=== PATIENT | male | born 1950 | race Caucasian/White ===

== ENCOUNTER 2025-03-17 08:16 | Day surgery (SDC) | payer MEDICARE, BC ==
[~2025-03-17 08:16] MED LIST: Ondansetron 4 MG/2 ML SDV ONE; Propofol 200 MG/20 ML SDV ONE; Ropivacaine 0.5% 5 MG/ML 30 ML SDV ONE; Sodium Chloride 0.9% 10 ML Syringe FLUSH PRN; Sodium Chloride 0.9% 10 ML Syringe FLUSH SCH; dexmedeTOMIDine HCl 200 MCG/2 ML SDV ONE; fentaNYL 100 MCG/2 ML SDV ONE; propofoL 500 MG/50 ML 50 ML ONE
[2025-03-17] MEDS: Lactated Ringers 1,000 ML IV SCH (08:45)
[2025-03-17] MEDS: Clindamycin Phosphate in D5W 900 MG in Premix Bag 1 BAG IV ONE (09:02)
[2025-03-17] MEDS ORDERED: Phenylephrine 1% 10 MG/ML SDV ONE (09:43)
[2025-03-17] MEDS ORDERED: propofoL 500 MG/50 ML 50 ML ONE (09:56)
[2025-03-17] MEDS ORDERED: ePHEDrine 50 MG/ML SDV ONE (10:14)
[2025-03-17] MEDS ORDERED: Propofol 200 MG/20 ML SDV ONE (10:40)
[2025-03-17] MEDS ORDERED: Ondansetron 4 MG/2 ML SDV IVPUSH PRN (10:55)
[2025-03-17] MEDS ORDERED: fentaNYL 100 MCG/2 ML SDV IVPUSH PRN (10:55)
== END 2025-03-17 13:44 | disposition home or self-care (01) ==
LOC: JD.SDS 08:16
PROVIDERS: ATTEND Orthopaedic Surgery
DX: M19.012 Primary osteoarthritis, left shoulder (principal); Z88.0 Allergy status to penicillin; Z79.899 Other long term (current) drug therapy; E11.9 Type 2 diabetes mellitus without complications; I10 Essential (primary) hypertension; E78.5 Hyperlipidemia, unspecified
CPT/HCPCS: 23472; 64415; 76000; 97161; 97530; A9270; C1713; C1769; C1776; J0736; J2371; J2405; J2704; J2795; J3010; J3373; J7120; 01638; 99100; J2003; J3490